=== PATIENT | female | born 1970 | race Caucasian/White ===

== ENCOUNTER 2018-03-06 19:19 | Emergency (ER) | payer MEDICARE, OTHER ==
[~2018-03-06] VITALS: Ht 170.2 cm; Wt 81.7 kg
[~2018-03-06 19:19] MED LIST: AMIT25 PO; AMOCLA875 PO; AMOX500 PO; ATEN25 PO; CEPH500 PO; CIPHYDOTSU OT; CIPR250 PO; CLON.5; DIAZ5 PO; DIVA500EC; DOXY100 PO; ESCI10; ESTR1 PO; ESTR2 PO; FLUO10 PO; HYDACE10B PO; HYDACE5 PO; HYDACE5325 PO; HYDMOR2 PO; IBUP600 PO; IBUP800 PO; LEVSOD50 PO; ONDA4 PO; ONDA4ODT MM; OXYACE5T; OXYACE5T PO; PENVK500 PO; PHENA200 PO; POLY17UD PO; PRED20 PO; PROACE100 PO; PROM25 PO; RANI150 PO; RXCEPH500 PO; RXHYDACE PO; RXOXYACE PO; RXPHEN200 PO; RXSULTRIDS PO; SULTRIDS PO; TRAM50 PO; [UNRECOGNIZED DRUG - OTHER]; [UNRECOGNIZED DRUG - REMARK]
[2018-03-06] MEDS ORDERED: Augmentin 875-1 EACH PO (22:09)
== END 2018-03-06 22:54 | disposition home or self-care (01) ==
LOC: ER 19:19
DX: S71.152A Open bite, left thigh, initial encounter (principal); S61.052A Open bite of left thumb without damage to nail, initial encounter; S80.212A Abrasion, left knee, initial encounter; S80.211A Abrasion, right knee, initial encounter; S50.312A Abrasion of left elbow, initial encounter; S50.311A Abrasion of right elbow, initial encounter; F17.200 Nicotine dependence, unspecified, uncomplicated; Z88.0 Allergy status to penicillin; W54.0XXA Bitten by dog, initial encounter
CPT/HCPCS: 73140

== ENCOUNTER 2021-02-26 13:30 | Emergency (ER) | payer MEDICARE, OTHER ==
[~2021-02-26] VITALS: Ht 175.3 cm; Wt 49.9 kg
[~2021-02-26 13:30] MED LIST changes: +Augmentin 875-1 EACH PO
[2021-02-26 14:22] LABS: BASOPHILS ABSOLUTE AUTO 0.03 K/mm3 (0.00-0.23); BASOPHILS PERCENT AUTO 0 % (0-2); EOSINOPHILS ABSOLUTE AUTO 0.11 K/mm3 (0.00-0.68); EOSINOPHILS PERCENT AUTO 1 % (0-6); Hematocrit 41.5 % (33.0-51.0); Hemoglobin 13.8 g/dL (11.5-16.0); IMMATURE GRAN ABSOLUTE AUTO 0.02 K/mm3 (0.00-0.10); IMMATURE GRAN PERCENT AUTO 0 % (0-1); LYMPHOCYTES ABSOLUTE AUTO 1.77 K/mm3 (0.84-5.20); LYMPHOCYTES PERCENT AUTO 20 % (21-46); MONOCYTES ABSOLUTE AUTO 0.73 K/mm3 (0.16-1.47); MONOCYTES PERCENT AUTO 8 % (4-13); Mean Corpuscular HGB 30.2 pg (26.0-34.0); Mean Corpuscular HGB Conc 33.3 g/dL (31.5-36.5); Mean Corpuscular Volume 91 fL (80-100); NEUTROPHILS ABSOLUTE AUTO 6.29 K/mm3 (1.96-9.15); NEUTROPHILS PERCENT AUTO 70 % (41-73); Platelet Count 283 K/mm3 (150-400); RDW Coefficient Variation 11.9 % (11.7-14.2); RDW Standard Deviation 39.4 fL (35.1-46.3); Red Blood Cell Count 4.57 M/mm3 (3.80-5.20); White Blood Cell Count 8.95 K/mm3 (4.00-11.30)
[2021-02-26 14:23] LABS: Alanine Aminotransfer (ALT/SGP 33 U/L (12-78); Albumin, Blood 3.5 g/dL (3.4-5.0); Alk Phos 87 U/L (50-136); Anion Gap 4 mmol/L (6-16); Aspartate Aminotrans (AST/SGOT 19 U/L (12-37); Bilirubin, Total 0.2 mg/dL (0.1-1.0); Blood Urea Nitrogen 10 mg/dL (8-24); Bun/Creatinine Ratio 16.5 (12.0-20.0); CO2, Blood 28 mmol/L (21-32); Chloride, Blood 103 mmol/L (98-108); Creatinine, Blood 0.61 mg/dL (0.40-1.00); Globulin, Blood 3.4 g/dL (2.2-4.0); Glomerular Filtration Rate >60 (60-); Glucose, Blood 121 mg/dL (70-99); Potassium, Blood 4.1 mmol/L (3.5-5.5); Sodium, Blood 135 mmol/L (136-145); Total Protein, Blood 6.9 g/dL (6.4-8.2); Troponin I <0.015 ng/mL (0.000-0.040)
== END 2021-02-26 17:56 | disposition left against medical advice (07) ==
LOC: ER 13:30
PROVIDERS: Physician Assistant
DX: R07.9 Chest pain, unspecified (principal); Z53.21 Procedure and treatment not carried out due to patient leaving prior to being seen by health care provider
CPT/HCPCS: 36415; 71046; 80053; 84484; 85025; 93005; 93010; 99283-25

== ENCOUNTER 2021-12-23 08:35 | Inpatient (IN) | payer MEDICARE, OTHER ==
[~2021-12-23] VITALS: Ht 175.3 cm; Wt 67.6 kg
[~2021-12-23 08:35] MED LIST changes: +ESCI10 PO; +TRAZ50 PO
[2021-12-23 09:37] LABS: BASOPHILS ABSOLUTE AUTO 0.03 K/mm3 (0.00-0.23); BASOPHILS PERCENT AUTO 0 % (0-2); EOSINOPHILS ABSOLUTE AUTO 0.17 K/mm3 (0.00-0.68); EOSINOPHILS PERCENT AUTO 2 % (0-6); Hemoglobin 13.2 g/dL (11.5-16.0); IMMATURE GRAN ABSOLUTE AUTO 0.02 K/mm3 (0.00-0.10); IMMATURE GRAN PERCENT AUTO 0 % (0-1); LYMPHOCYTES ABSOLUTE AUTO 1.55 K/mm3 (0.84-5.20); LYMPHOCYTES PERCENT AUTO 17 % (21-46); MONOCYTES ABSOLUTE AUTO 0.92 K/mm3 (0.16-1.47); MONOCYTES PERCENT AUTO 10 % (4-13); Mean Corpuscular HGB 28.8 pg (26.0-34.0); Mean Corpuscular HGB Conc 32.2 g/dL (31.5-36.5); Mean Corpuscular Volume 90 fL (80-100); Mean Platelet Volume 9.8 fL (9.1-12.4); NEUTROPHILS ABSOLUTE AUTO 6.54 K/mm3 (1.96-9.15); NEUTROPHILS PERCENT AUTO 71 % (41-73); Platelet Count 254 K/mm3 (150-400); RDW Coefficient Variation 12.3 % (11.7-14.2); Red Blood Cell Count 4.58 M/mm3 (3.80-5.20); White Blood Cell Count 9.23 K/mm3 (4.00-11.30)
[2021-12-23 09:54] LABS: Alanine Aminotransfer (ALT/SGP 29 U/L (12-78); Albumin, Blood 3.3 g/dL (3.4-5.0); Alk Phos 88 U/L (50-136); Anion Gap 4 mmol/L (6-16); Aspartate Aminotrans (AST/SGOT 12 U/L (12-37); Bilirubin, Total 0.2 mg/dL (0.1-1.0); Blood Urea Nitrogen 8 mg/dL (8-24); Bun/Creatinine Ratio 15.2 (12.0-20.0); CO2, Blood 30 mmol/L (21-32); Calcium, Blood 8.9 mg/dL (8.5-10.1); Chloride, Blood 105 mmol/L (98-108); Creatinine, Blood 0.53 mg/dL (0.40-1.00); Globulin, Blood 3.3 g/dL (2.2-4.0); Glomerular Filtration Rate >60 (60-); Glucose, Blood 109 mg/dL (70-99); Sodium, Blood 139 mmol/L (136-145); Total Protein, Blood 6.6 g/dL (6.4-8.2)
[2021-12-23 10:59] LABS: U Amphetamine Screen DETECTED; U Barbituate Screen Not Detected; U Benzodiazapine Screen Not Detected; U Buprenorphine Screen Not Detected; U Cannabinoids Screen DETECTED; U Cocaine Screen Not Detected; U Methadone Screen Not Detected; U Methamphetamine Screen DETECTED; U Opiates Screen Not Detected; U Oxycodone Screen Not Detected; U Phencyclidine Screen Not Detected; U Propoxyphene Screen Not Detected
--- NOTE | 2021-12-23 18:02 | NUR ---
END OF SHIFT SUMMARY: PATIENT ARRIVED TO UNIT VIA WHEELCHAIR. PATIENT CALM, ALERT AND ORIENTED. PATIENT ABLE TO TRANSFER INDEPENDENTLY AND IS INDEPENDENT IN THE ROOM. PATIENT COOPERATIVE WITH CARE. PAIN CONTROLLED WITH PRN PAIN MEDICATIONS AND ELEVATION OF EXTREMITY. PATIENT HAS AN EXCELLENT APPETITE. PATIENT INDEPENDENT IN THE ROOM. PATIENT DENIES DIZZINESS, NAUSEA, OR SHORTNESS OF BREATH. URINE IS CLEAR, LIGHT YELLOW. PATIENT REPORTS FATIGUE AND SLEPT MOST OF THE AFTERNOON. SOME INCREASED SWELLING NOTED IN RIGHT FINGER. PATIENT HAS AN INTACT, QUARTER SIZED, DARK PURPLE BLISTER ON THE INSIDE OF THE RIGHT MIDDLE FINGER. FINGER IS NOTED TO BE SWOLLEN AND REDDISH IN COLOR. TENDER TO THE TOUCH AND WITH MOVEMENT.
--- NOTE | 2021-12-24 05:27 | NUR ---
SHIFT SUMMARY: PT IS A/OX4. SHE DID HAVE A LOT OF PAIN AT THE BEGINNING OF THE SHIFT; THE PRN OXY AND TORADOL SEEM TO MANANGING HER PAIN. SHE IS INDEPENDENT IN THE ROOM, BUT D/T GETTING CONTINOUS FLUIDS AND ABX, SHE WILL CALL IF SHE NEEDS TO USE THE BR. SHE ALSO USES A FEMALE URINAL AT BEDSIDE. CALL LIGHT IS WITHIN REACH.
[2021-12-24 07:40] LABS: Hematocrit 40.5 % (33.0-51.0); Hemoglobin 12.6 g/dL (11.5-16.0); Mean Corpuscular HGB 28.8 pg (26.0-34.0); Mean Corpuscular HGB Conc 31.1 g/dL (31.5-36.5); Mean Corpuscular Volume 93 fL (80-100); Mean Platelet Volume 9.8 fL (9.1-12.4); Platelet Count 233 K/mm3 (150-400); RDW Coefficient Variation 12.3 % (11.7-14.2); RDW Standard Deviation 42.3 fL (35.1-46.3); Red Blood Cell Count 4.37 M/mm3 (3.80-5.20); White Blood Cell Count 8.21 K/mm3 (4.00-11.30)
[2021-12-24 07:56] LABS: Vancomycin, Trough 11.5 ug/mL (5.0-10.0)
[2021-12-24 08:03] LABS: Anion Gap 4 mmol/L (6-16); Blood Urea Nitrogen 9 mg/dL (8-24); CO2, Blood 29 mmol/L (21-32); Calcium, Blood 8.3 mg/dL (8.5-10.1); Chloride, Blood 108 mmol/L (98-108); Glomerular Filtration Rate >60 (60-); Glucose, Blood 105 mg/dL (70-99); Potassium, Blood 4.3 mmol/L (3.5-5.5); Sodium, Blood 141 mmol/L (136-145)
--- NOTE | 2021-12-24 17:15 | NUR ---
SHIFT SUMMARY PATIENT A&OX4. INDEPENDENT IN ROOM USING URINAL AND UP TO RESTROOM. RECEIVING IV FLUIDS AND IV ANTIBIOTICS. C/O PAIN RIGHT HAND/MIDDLE FINGER. MEDICATED PER OCT. MIDDLE FINGER BLISTER PRESENT WITH REDNESS AND SWELLING ON RIGHT HAND. VSS. WILL CONTINUE TO MONITOR.
--- NOTE | 2021-12-25 04:32 | NUR ---
PATIENTA/OX4, INDEPENDENT AND ABLE TO MAKE NEEDS KNOWN. MEDICATER PER OCT FOR PAIN TO RIGHT HAND. AT THE START OF SHIFT WAS C/O FEELING VERY COLD. STATES THAT THIS HAS BEEN GOING ON SINCE SHE HAS BEEN HERE. SEVERAL WARM BLANKETS GIVEN AND ROOM TEMPERATURE INCREASED. AFTER THIS PATIENT WAS ABLE TO SLEEP WITH NO ACUTE CHANGES NOTED.
[2021-12-25 07:36] LABS: Vancomycin, Trough 8.6 ug/mL (5.0-10.0)
--- NOTE | 2021-12-25 18:18 | NUR ---
SHIFT SUMMARY PT A&OX4. PT'S R FINGER ABCESS BURST TODAY. SHE COMPLAINED OF SIGNIFICANT PAIN JUST PRIOR TO IT BURSTING OPEN. MEDICATED HER FOR THE PAIN PER MD ORDERS SHE STATED THAT THE RELIEF WAS IMMENSE. FINGER CLEANED AND LOOSELY WRAPPED TO CONTAIN THE DRAINAGE. SHE HAD AN MRI OF THE R HAND TODAY. SHE WILL BE NPO AFTER MN AND WILL GO TO SURG TOMORROW. THE ORTHO MD SAW HER THIS AFTERNOON. SHE IS INDEPENDENT IN THE ROOM. IS STABLE ON HER FEET.
--- NOTE | 2021-12-26 03:42 | NUR ---
SHIFT SUMMARY: A/O X4, ADLIB IN ROOM. PATIENT HAS DECLINED PAIN THROUGHOUT SHIFT, WHEN ROUNDING PATIENT APPEARS TO BE RESTING COMFORTABLY. IV REMOVED AND REPLACED WITH 18G IN THE UPPER RIGHT ARM DUE TO OCCLUSION IN PREVIOUS SITE. PT REMAINS NPO AFTER MIDNIGHT DUE TO PENDING SURGERY. GAUZE IN PLACE AROUND FINGER, SWELLING AND REDNESS HAS DECREASED IN RIGHT HAND. IV FLUIDS CONTINUING TO INFUSE WELL SCHEDULED ANTIBIOTICS. BED IN LOW POSITION, CALL BLANK IN REACH.
[2021-12-26 06:14] LABS: Influenza A, PCR NEGATIVE (NEGATIVE); Influenza B, PCR NEGATIVE (NEGATIVE); Resp Syncytial Virus, PCR NEGATIVE (NEGATIVE); SARS-Cov-2 (COVID-19) PCR, MMC NEGATIVE (NEGATIVE)
[2021-12-26 07:31] LABS: BASOPHILS ABSOLUTE AUTO 0.02 K/mm3 (0.00-0.23); BASOPHILS PERCENT AUTO 0 % (0-2); EOSINOPHILS ABSOLUTE AUTO 0.14 K/mm3 (0.00-0.68); EOSINOPHILS PERCENT AUTO 2 % (0-6); Hematocrit 38.7 % (33.0-51.0); Hemoglobin 12.4 g/dL (11.5-16.0); IMMATURE GRAN ABSOLUTE AUTO 0.02 K/mm3 (0.00-0.10); IMMATURE GRAN PERCENT AUTO 0 % (0-1); LYMPHOCYTES ABSOLUTE AUTO 1.19 K/mm3 (0.84-5.20); LYMPHOCYTES PERCENT AUTO 21 % (21-46); MONOCYTES ABSOLUTE AUTO 0.46 K/mm3 (0.16-1.47); MONOCYTES PERCENT AUTO 8 % (4-13); Mean Corpuscular HGB 29.1 pg (26.0-34.0); Mean Corpuscular Volume 91 fL (80-100); Mean Platelet Volume 9.6 fL (9.1-12.4); NEUTROPHILS ABSOLUTE AUTO 3.89 K/mm3 (1.96-9.15); NEUTROPHILS PERCENT AUTO 68 % (41-73); Platelet Count 252 K/mm3 (150-400); RDW Coefficient Variation 12.2 % (11.7-14.2); RDW Standard Deviation 40.9 fL (35.1-46.3); Red Blood Cell Count 4.26 M/mm3 (3.80-5.20); White Blood Cell Count 5.72 K/mm3 (4.00-11.30)
[2021-12-26 07:50] LABS: Anion Gap 4 mmol/L (6-16); Blood Urea Nitrogen 9 mg/dL (8-24); Bun/Creatinine Ratio 16.6 (12.0-20.0); CO2, Blood 29 mmol/L (21-32); Calcium, Blood 8.5 mg/dL (8.5-10.1); Chloride, Blood 110 mmol/L (98-108); Creatinine, Blood 0.54 mg/dL (0.40-1.00); Glomerular Filtration Rate >60 (60-); Glucose, Blood 108 mg/dL (70-99); Potassium, Blood 4.2 mmol/L (3.5-5.5); Sodium, Blood 143 mmol/L (136-145); Vancomycin, Trough 13.5 ug/mL (5.0-10.0)
--- NOTE | 2021-12-26 16:21 | NUR ---
TO PACU FOR PREOP. A/O X 3. REPORTS 7/10 PAIN IN RIGHT MIDDLE FINGER. RED/OPEN SORE. LUNGS CLEAR.
--- NOTE | 2021-12-26 17:31 | NUR ---
SHIFT SUMMARY: PATIENT IS A/O X4 AND IS INDEPENDENT IN HER ROOM. PT HAS BEEN NPO SINCE MIDNIGHT FOR AN I/D OF HER RIGHT MIDDLE FINGER. SHE HAS BEEN VERY ANXIOUS ABOUT HER UPCOMING PROCEDURE, BUT WE MADE SURE TO KEEP THE PATIENT INFORMED ABOUT THE PROCEDURE AND WHEN THEY WOULD BE COMING TO TAKE HER. SHE WAS VERY FRUSTRATED ABOUT BEING UNABLE TO EAT ANYTHING AND SAID SHE WAS "SICK HUNGRY". THE WAS INFORMED ABOUT THIS AND ALLOWED HER TO EAT ONE PACKET OF SALTINE CRACKERS. PT WAS PICKED UP FOR SURGERY AT APPROXIMATELY 1400.
--- NOTE | 2021-12-26 18:37 | NUR ---
PT SURGERY DELAYED. UP TO BR X 2. STEADY GAIT. RESTING QUIETLY.
--- NOTE | 2021-12-26 19:39 | NUR ---
12/26/211938 Joe Alberto PT ON SCHEDULED ABX
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
[2021-12-27 09:57] LABS: BASOPHILS PERCENT AUTO 0 % (0-2); EOSINOPHILS PERCENT AUTO 0 % (0-6); Hematocrit 37.3 % (33.0-51.0); Hemoglobin 12.1 g/dL (11.5-16.0); IMMATURE GRAN ABSOLUTE AUTO 0.03 K/mm3 (0.00-0.10); IMMATURE GRAN PERCENT AUTO 0 % (0-1); LYMPHOCYTES ABSOLUTE AUTO 0.61 K/mm3 (0.84-5.20); LYMPHOCYTES PERCENT AUTO 8 % (21-46); MONOCYTES ABSOLUTE AUTO 0.18 K/mm3 (0.16-1.47); MONOCYTES PERCENT AUTO 2 % (4-13); Mean Corpuscular HGB 29.1 pg (26.0-34.0); Mean Corpuscular HGB Conc 32.4 g/dL (31.5-36.5); Mean Corpuscular Volume 90 fL (80-100); Mean Platelet Volume 9.6 fL (9.1-12.4); NEUTROPHILS ABSOLUTE AUTO 6.55 K/mm3 (1.96-9.15); NEUTROPHILS PERCENT AUTO 89 % (41-73); Platelet Count 274 K/mm3 (150-400); RDW Standard Deviation 39.6 fL (35.1-46.3); Red Blood Cell Count 4.16 M/mm3 (3.80-5.20); White Blood Cell Count 7.37 K/mm3 (4.00-11.30)
[2021-12-27 10:10] LABS: Anion Gap 7 mmol/L (6-16); Blood Urea Nitrogen 12 mg/dL (8-24); Bun/Creatinine Ratio 24.5 (12.0-20.0); CO2, Blood 27 mmol/L (21-32); Chloride, Blood 105 mmol/L (98-108); Creatinine, Blood 0.49 mg/dL (0.40-1.00); Glomerular Filtration Rate >60 (60-); Glucose, Blood 239 mg/dL (70-99); Sodium, Blood 139 mmol/L (136-145)
--- NOTE | 2021-12-27 10:47 | NUR ---
PT WAS RESTING WITH EYES SHUT RR E/U AT SHIFT CHANGE. ONCE SHE WAS WOKEN FOR A LAB DRAW SHE REFUSED BUT WAS PLEASANT. SHE DID REFUSE TO HAVE VITALS TAKEN X 3. AFTER 3RD ATTEMPT TO GET BLOOD DRAW SHE DID COMPLY. WHILE I WAS GIVING HER ORAL MEDICATIONS AND IV ANTIBIOTICS CEFAPIME SHE BECAME VERBALLY AGGRESSIVE YELLING PROFANITIES AND STATING "YOU GUYS ARE ALL FUCKING WASTEFUL. I AM ON DISABILITY AND YOU THROW ALL THIS FUCKING SYRINGES AND FOOD AWAY." PT WAS ON THE PHONE TALKING WITH SOMEONE ALSO AT THIS TIME. PT CONTINUED TO YELL ABOUT HOW WASTEFUL WE ARE AND HOW SHE HAD VIDEOS OF US TO SHOW HIM. PT THEN TOLD ME SHE WAS GOING TO LEAVE SOON HER ANTIBIOTIC WAS DONE. I EXPLAINED TO HER DR. COYLE NEEDS TO SEE HER HAND PRIOR TO DISCHARGE AND HE LIKELY CANNOT COME WITHIN THE HOUR. PT CONTINUED TO YELL "I DON'T GIVE A SHIT I AM LEAVING NO MATTER WHAT." I STARTED HER ANTIBIOTIC AND LEFT THE ROOM SHE WAS ESCALATING. DR. MERCEDES NOTIFIED OF PT STATEMENTS AND BEHAVIORS. DR. COYLE NOTIFIED OF PT INTENT TO LEAVE IN AN HOUR. DR. COYLE REPORTED HE WAS IN SURGERY AND CANNOT ROUND UNTIL THIS EVENING AND REQUESTED I NOTIFY DR. MERCEDES. DR. MERCEDES NOTIFIED DR. COYLE WILL NOT BE ABLE TO SEE PT PRIOR TO LEAVING. DR. MERCEDES REPORTED HE WOULD COME AND TALK TO PATIENT SOON. PT NOW SITTING IN BED WATCHING TV RR E/U AND SHE IS NOT YELLING.
--- NOTE | 2021-12-27 11:39 | NUR ---
PT OFFERED TYLENOL FOR PAIN AND SHE REPORTED SHE DID NOT NEED ANY PAIN MEDICATION. TYLENOL TAKEN INTO ISOLATION ROOM SO THIS RN WASTED IN ROOM. THIS UPSET PT AND SHE BEGAN SCREAMING HOW WASTEFUL WE ARE AND YELLING PROFANITIES AGAIN. THIS RN WALKED OUT OF ROOM TO ALLOW PT TO CALM DOWN. WILL ATTEMPT TO TALK TO HER AGAIN.
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
--- NOTE | 2021-12-27 16:33 | NUR ---
PT ARRIVED BACK ON UNIT AT 4 PM. PT GIVEN SCHEDULED MEDICATIONS PER OCT. DR. COYLE CAME AND CHECKED ON PT. ORDER GIVEN TO LEAVE BANDAGE IN PLACE ONE MORE NIGHT AND HE WILL REMOVE TOMORROW.
--- NOTE | 2021-12-27 18:09 | NUR ---
SHIFT SUMMARY: PT A/O X 4 IND IN ROOM. SHOWING S/S OF CARL THROUGHOUT THE DAY. PT WAS CALMER AFTER COMING BACK FROM VISIT WITH A "FRIEND" WHO SHE SAID SHE SAT IN THE CAR WITH. PT HAD BEEN ADVISED PRIOR TO LEAVING IT IS PREFERRED PT DO NOT LEAVE UNIT. PT REPORTED SHE NEEDED TO SEE HER FRIEND BECAUSE "I AM ANXIOUS AND HE HELPS CALM ME." AT END OF SHIFT PT RESTING IN BED WATCHING TV. HER HAND ELEVATED ON PILLOW. PT ABLE TO MOVE R HAND FINGERS AND REPORTS FEELING IN FINGERS. NO NOTICABLE SWELLING TO FINGERS.
--- NOTE | 2021-12-27 18:57 | NUR ---
PT REPORTED TO ME SHE WAS GOING DOWNSTAIRS AGAIN TO VISIT HER "FRIEND" IN THE PARKING LOT. SHE LEFT WITH HER BAG WHICH APPEARED TO BE FULL OF BELONGINGS FROM HER ROOM AND A BAG FULL OF HOSPITAL BLANKETS. I HAD ADVISED HER EARLIER SHE SHOULD NOT LEAVE UNIT AND CANNOT LEAVE PREMISES. PT STATED SHE WAS JUST GOING DOWN FOR 15 MINUTES BECAUSE HER FRIEND "CAN'T LIVE WITHOUT HER AND JUST NEEDS A HUG." I TOLD HER SHE CANNOT TAKE THE BLANKETS WITH HER BECAUSE THEY ARE HOSPITAL PROPERTY. PT TOLD ME ANOTHER EMPLOYEE TOLD HER SHE CAN TAKE THEM BECAUSE THEY ARE STAINED AND I TOLD HER THAT WAS NOT ACCURATE, WE HAVE SPECIAL LAUNDRY FOR OUR LINENS. PT DID TAKE BAG OF BLANKETS BACK TO ROOM AND PROCEEDED TO LEAVE UNIT. SHE IS STEADY ON FEET.
--- NOTE | 2021-12-28 02:59 | NUR ---
NURSE NOTE/SHIFT SUMMARY: A/OX4 PATIENT CONTINUES TO APPEAR RESTLESS, RAPID RAMBLED SPEECH AND VERY SPORADIC. PATIENT INSISTED TO LEAVE THE UNIT APPROXIMATELY AT 1953, REPORTS SHE WANTS TO GO OUTSIDE TO VISIT WITH A FRIEND. PRIOR TO LEAVING PATIENTS IV WAS LEAKING AND NO LONGER WORKING- IV REMOVED PRIOR TO PATIENT WALKING OFF OF UNIT AND GOING OUTSIDE. PATIENT ADVISED NOT TO LEAVE UNIT, PATIENT INSISTED AND REPORTED TO BE BACK WITHIN 30 MINUTES. CHARGE NURSE NOTIFIED PATIENT LEAVING THE UNIT- CHARGE NURSE INFORMED THAT IF THE PATIENT LEAVES UNIT SHE MAY RETURN TO ROOM IF SHE IS GONE NO LONGER THAN AN HOUR. PATIENT RETURNED TO ROOM UNDER AN HOUR. PATIENT DID NOT APPEAR TO BE UNDER THE INFLUENCE AT THIS TIME. THROUGHOUT THE REMAINING OF THE NIGHT PATIENT WAS MORE COMPLIANT AND PLEASANT MOOD. PT REQUESTED ADDITIONAL PRN MEDICATION FOR SLEEP DUE TO ATARAX AND MELATONIN BEING INAFFECTIVE. GAVE TELEPHONE ORDER FOR ONE TIME DOSE TRAZODONE. POST ADMINISRATION PATIENT WAS ABLE TO REST MAJORITY OF THE NIGHT. NO PAIN REPORTED THROUGHOUT THE SHIFT.
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
--- NOTE | 2021-12-28 18:09 | NUR ---
SHIFT SUMMARY: PATIENT IS A/OX4. ABX ADMINISTERED PER EMAR. DR. ORTIZ CAME AND EVALUATED THE PT AND CHANGED HER BANDAGE, APPLYING MORE PACKING. PT REPORTED MULTIPLE TIMES THAT SHE BELIEVES HER LOWER DENTURE WAS STOLEN WHILE SHE LEFT THE UNIT. SEE OTHER NOTES FOR DETAILS. PT AMBULATES INDEPENDENTLY. SHE DID REQUEST PAIN MEDICATION, BUT HAS OTHERWISE SEEMED RELATIVELY COMFORTABLE. WILL GIVE REPORT TO NIGHT NURSE.
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
--- NOTE | 2021-12-29 14:01 | NUR ---
DISCHARGE SUMMARY/ AMA STATEMENT PATIENT WAS SEEN MY DR IN THE MORNING ROUNDS. PATIENT HAD DISCHARGE ORDERS AFTER SEEING THE SURGEON DR FOR FOLLOWUP INSTRUCTIONS. SURGEON SAW PATIENT AND PATIENT LEFT IMMEDIATELY AFTER SURGEON SAW PATIENT. PATIENT HAD FREQUENT COMINGS AND ROBERTO FROM ROOM, PATIENT WAS ADVISED THAT SHE HAD ONE HOUR TO BE OFF FLOOR TO BE CONSIDERED AMA. PATIENT HAS BEEN GONE FOR OVER AN HOUR AND IS CONSIDERED AMA. PATIENT TOOK ALL BELONGINGS WITH HER.
== END 2021-12-29 14:00 | disposition left against medical advice (07) | DRG 603 ==
LOC: ER 08:35 → MEDS 08:36 → ER 12:28 → MEDS 14:03
PROVIDERS: Internal Medicine; Nurse Practitioner Acute Care; Orthopaedic Surgery; Pharmacist; Physician Assistant; Student in an Organized Health Care Education/Training Program; ADMIT Internal Medicine
PROC: 0H9FXZZ Drainage of Right Hand Skin, External Approach (ICD-10-PCS; principal; 2021-12-26 14:15)
DX: L03.011 Cellulitis of right finger (principal); L02.511 Cutaneous abscess of right hand; F32.A Depression, unspecified; F15.10 Other stimulant abuse, uncomplicated; Z20.822 Contact with and (suspected) exposure to COVID-19; F17.210 Nicotine dependence, cigarettes, uncomplicated; F12.10 Cannabis abuse, uncomplicated; F41.9 Anxiety disorder, unspecified; Z88.0 Allergy status to penicillin; Z22.321 Carrier or suspected carrier of Methicillin susceptible Staphylococcus aureus; Z79.2 Long term (current) use of antibiotics; Z79.899 Other long term (current) drug therapy; Z71.51 Drug abuse counseling and surveillance of drug abuser
CPT/HCPCS: 0241U; 36415; 73140; 73223; 80048; 80053; 80202; 83605; 85025; 85027; 85651; 86140; 87040; 87070; 87075; 87077; 87147; 87186; 87205; 96365; 96366; 96375; 96376; 99284-25; A9270; A9579; G0378; J0690; J0692; J0694; J1650; J1885; J2060; J2250; J2270; J2704; J3010; J3370; J7030; J7050; J7060; J7120

== ENCOUNTER 2022-12-10 16:52 | Emergency (ER) | payer MEDICARE, OTHER ==
[~2022-12-10] VITALS: Ht 177.8 cm; Wt 70.3 kg
[2022-12-10 16:59] VITALS: BP 129/77
[2022-12-10] MEDS ORDERED: Amoxicillin500 MG PO (17:03)
[2022-12-10] MEDS ORDERED: IBUP800 PO (17:03)
== END 2022-12-10 17:18 | disposition home or self-care (01) ==
LOC: ER 16:52
DX: K04.7 Periapical abscess without sinus (principal); Z88.0 Allergy status to penicillin; F17.200 Nicotine dependence, unspecified, uncomplicated
CPT/HCPCS: 99282

== ENCOUNTER 2023-05-14 18:58 | Emergency (ER) | payer OTHER ==
[~2023-05-14] VITALS: Ht 175.3 cm; Wt 72.6 kg
[~2023-05-14 18:58] MED LIST changes: +Amoxicillin500 MG PO
[2023-05-14 19:21] VITALS: BP 117/85
[2023-05-14] MEDS ORDERED: Cleocin HCl150 MG PO (21:41)
== END 2023-05-14 21:38 | disposition home or self-care (01) ==
LOC: ER 18:58
DX: L03.115 Cellulitis of right lower limb (principal); F17.210 Nicotine dependence, cigarettes, uncomplicated; Z88.0 Allergy status to penicillin
CPT/HCPCS: 73620; 90471; 90715; 99283-25; A9270

== ENCOUNTER 2023-07-09 14:39 | Emergency (ER) | payer OTHER ==
[~2023-07-09] VITALS: Ht 175.3 cm; Wt 45.4 kg
[~2023-07-09 14:39] MED LIST changes: +Cleocin HCl150 MG PO
[2023-07-09 16:43] LABS: BASOPHILS ABSOLUTE AUTO 0.02 K/mm3 (0.00-0.23); BASOPHILS PERCENT AUTO 0 % (0-2); EOSINOPHILS ABSOLUTE AUTO 0.01 K/mm3 (0.00-0.68); EOSINOPHILS PERCENT AUTO 0 % (0-6); Hematocrit 41.5 % (33.0-51.0); Hemoglobin 13.8 g/dL (11.5-16.0); IMMATURE GRAN ABSOLUTE AUTO 0.02 K/mm3 (0.00-0.10); IMMATURE GRAN PERCENT AUTO 0 % (0-1); LYMPHOCYTES ABSOLUTE AUTO 0.99 K/mm3 (0.84-5.20); LYMPHOCYTES PERCENT AUTO 11 % (21-46); MONOCYTES ABSOLUTE AUTO 0.71 K/mm3 (0.16-1.47); MONOCYTES PERCENT AUTO 8 % (4-13); Mean Corpuscular HGB 29.2 pg (26.0-34.0); Mean Corpuscular HGB Conc 33.3 g/dL (31.5-36.5); Mean Corpuscular Volume 88 fL (80-100); Mean Platelet Volume 9.5 fL (9.1-12.4); NEUTROPHILS ABSOLUTE AUTO 7.62 K/mm3 (1.96-9.15); NEUTROPHILS PERCENT AUTO 81 % (41-73); Platelet Count 256 K/mm3 (150-400); RDW Coefficient Variation 12.1 % (11.7-14.2); RDW Standard Deviation 39.5 fL (35.1-46.3); Red Blood Cell Count 4.72 M/mm3 (3.80-5.20); White Blood Cell Count 9.37 K/mm3 (4.00-11.30)
[2023-07-09 16:44] LABS: Source, Urine Clean Catch
[2023-07-09 16:46] LABS: Appearance, Urine Clear (Clear); Bilirubin, Urine Neg (Neg); Blood, Urine Neg (Neg); Color, Urine Yellow (P-Yellow); Glucose Qualitative, Urine Neg (Neg); Ketones, Urine Neg (Neg); Leukocyte Esterase, Urine Neg (Neg); Nitrite, Urine Neg (Neg); Protein, Urine 1+ (Neg); Urobilinogen, Urine NORM (Normal)
[2023-07-09 17:03] LABS: Albumin, Blood 3.6 g/dL (3.4-5.0); Bilirubin, Total 0.4 mg/dL (0.1-1.0); Bun/Creatinine Ratio 14.1 (12.0-20.0); Calcium, Blood 9.2 mg/dL (8.5-10.1); Creatinine, Blood 0.57 mg/dL (0.40-1.00); Globulin, Blood 3.7 g/dL (2.2-4.0); Potassium, Blood 4.3 mmol/L (3.5-5.5); Total Protein, Blood 7.3 g/dL (6.4-8.2)
[2023-07-09] MEDS ORDERED: BISA5EC PO (17:30)
[2023-07-09] MEDS ORDERED: DICY20 PO (17:30)
[2023-07-09 17:44] VITALS: BP 120/80
== END 2023-07-09 17:47 | disposition home or self-care (01) ==
LOC: ER 14:39
PROVIDERS: Emergency Medicine
DX: K59.00 Constipation, unspecified (principal); F15.10 Other stimulant abuse, uncomplicated; F17.210 Nicotine dependence, cigarettes, uncomplicated
CPT/HCPCS: 74018; 80053; 83690; 85025; 99284-25; A9270; J7030

== ENCOUNTER 2024-06-06 14:33 | Emergency (ER) | payer OTHER ==
[~2024-06-06] VITALS: Ht 175.3 cm; Wt 61.2 kg
[~2024-06-06 14:33] MED LIST changes: +BISA5EC PO; +DICY20 PO
[2024-06-06 14:56] VITALS: BP 117/75
[2024-06-06] MEDS ORDERED: Ketorolac Tromethamine 30mg Vial IM ONE (16:45)
[2024-06-06] MEDS ORDERED: IBU600 M1 PO (16:54)
== END 2024-06-06 17:30 | disposition home or self-care (01) ==
LOC: ER 14:33
DX: R07.81 Pleurodynia (principal); F17.210 Nicotine dependence, cigarettes, uncomplicated
CPT/HCPCS: 71101; 99283-25

== ENCOUNTER 2024-07-14 20:24 | Emergency (ER) | payer OTHER ==
[~2024-07-14] VITALS: Ht 172.7 cm; Wt 59.0 kg
[~2024-07-14 20:24] MED LIST changes: +IBU600 M1 PO
[2024-07-14 20:33] VITALS: BP 129/100
== END 2024-07-14 20:55 | disposition home or self-care (01) ==
LOC: ER 20:24
DX: K04.7 Periapical abscess without sinus (principal); F17.210 Nicotine dependence, cigarettes, uncomplicated; Z79.899 Other long term (current) drug therapy
CPT/HCPCS: 41800; 99282-25

== ENCOUNTER 2024-08-27 10:44 | Emergency (ER) | payer OTHER ==
[~2024-08-27] VITALS: Ht 175.3 cm; Wt 61.2 kg
[2024-08-27] MEDS ORDERED: LORazepam 2 MG/ML 1ML Injection IV ONE (11:35)
[2024-08-27] MEDS ORDERED: Cyclobenzaprine HCl 10 MG Tab PO ONE (11:35)
[2024-08-27 12:17] LABS: BASOPHILS ABSOLUTE AUTO 0.01 K/mm3 (0.00-0.23); BASOPHILS PERCENT AUTO 0 % (0-2); EOSINOPHILS ABSOLUTE AUTO 0.07 K/mm3 (0.00-0.68); EOSINOPHILS PERCENT AUTO 1 % (0-6); Hematocrit 38.5 % (33.0-51.0); Hemoglobin 12.8 g/dL (11.5-16.0); IMMATURE GRAN ABSOLUTE AUTO 0.02 K/mm3 (0.00-0.10); IMMATURE GRAN PERCENT AUTO 0 % (0-1); LYMPHOCYTES ABSOLUTE AUTO 1.59 K/mm3 (0.84-5.20); LYMPHOCYTES PERCENT AUTO 20 % (21-46); MONOCYTES ABSOLUTE AUTO 0.92 K/mm3 (0.16-1.47); MONOCYTES PERCENT AUTO 12 % (4-13); Mean Corpuscular HGB 29.4 pg (26.0-34.0); Mean Corpuscular HGB Conc 33.2 g/dL (31.5-36.5); Mean Corpuscular Volume 89 fL (80-100); Mean Platelet Volume 9.5 fL (9.1-12.4); NEUTROPHILS ABSOLUTE AUTO 5.23 K/mm3 (1.96-9.15); NEUTROPHILS PERCENT AUTO 67 % (41-73); Platelet Count 271 K/mm3 (150-400); RDW Coefficient Variation 12.3 % (11.7-14.2); Red Blood Cell Count 4.35 M/mm3 (3.80-5.20); White Blood Cell Count 7.84 K/mm3 (4.00-11.30)
[2024-08-27 12:19] VITALS: BP 132/92
[2024-08-27 13:13] LABS: Bun/Creatinine Ratio 24.8 (12.0-20.0); Calcium, Blood 9.4 mg/dL (8.5-10.1); Creatinine, Blood 0.6 mg/dL (0.40-1.00); Potassium, Blood 3.9 mmol/L (3.5-5.5)
== END 2024-08-27 19:48 | disposition left against medical advice (07) ==
LOC: ER 10:44
PROVIDERS: Student in an Organized Health Care Education/Training Program
DX: M54.2 Cervicalgia (principal); M25.511 Pain in right shoulder; G89.29 Other chronic pain; I10 Essential (primary) hypertension; F17.210 Nicotine dependence, cigarettes, uncomplicated
CPT/HCPCS: 20552; 70491; 71046; 80048; 84484; 85025; 85379; 86140; 93005; 93010; 96374-59; 99284-25; A9270; J2060; Q9967

== ENCOUNTER 2025-05-20 16:31 | Emergency (ER) | payer OTHER ==
[~2025-05-20] VITALS: Ht 157.5 cm; Wt 63.5 kg
[2025-05-20] MEDS ORDERED: Ketorolac Tromethamine 30mg Vial IM ONE (16:55)
[2025-05-20] MEDS ORDERED: Lidocaine 4% 1 Patch TOP ONE (16:55)
[2025-05-20 17:57] VITALS: BP 116/69
[2025-05-20] MEDS ORDERED: LIDO700A20 TOP (18:15)
[2025-05-20] MEDS ORDERED: IBUP600 PO (18:15)
[2025-05-20] MEDS ORDERED: ACET500 PO (18:15)
== END 2025-05-20 18:25 | disposition home or self-care (01) ==
LOC: ER 16:31
DX: R07.89 Other chest pain (principal); F17.210 Nicotine dependence, cigarettes, uncomplicated; Z79.899 Other long term (current) drug therapy
CPT/HCPCS: 71101; 96372; 99283-25; A9270; J1885